=== PATIENT | female | born 1940 | race Caucasian/White ===

== ENCOUNTER 2017-08-29 07:24 | Day surgery (SDC) | payer MEDICARE, BC ==
[~2017-08-29] VITALS: Ht 162.6 cm; Wt 66.7 kg
[~2017-08-29 07:24] MED LIST: ASPI81CH PO; ASPI81EC PO; ATOR40TA PO; CALCAVITD PO; CHOL10002 PO; CLON.5 PO; DULO30 PO; FENT50TP TD; GABA100 PO; HYDACE5 PO; HYDACE7.5 PO; HYDMOR4 PO; Hair, Skin & N1 EACH PO; LISHYD2012 PO; LOSARTAN/HCTZ; LOSHYD PO; LOVA20 PO; Lovastatin20 MG PO; MAGCHL64ER PO; MELA3 PO; MIRT15 PO; MIRT15ST MM; MULVITMIND PO; MULVITMINE PO; MULVITMINF PO; NAPR220 PO; OMEP20ER PO; OMEPRAZOLE MAGN20 MG PO; OXYB5 PO; OXYC5; POLY17UD PO; POTCHL10ER PO; PRED20 PO; PREG100 PO; Super B Comple150 MG PO; VITB100 PO; VITNEPH PO; ZOLP12.5 PO; [UNRECOGNIZED DRUG - OTHER] PO
[2018-05-31] MEDS ORDERED: Prednisone20 MG PO (13:31)
[2018-05-31] MEDS ORDERED: Norco 10-325 T1 EACH PO (13:31)
== END 2017-08-29 09:28 | disposition home or self-care (01) ==
LOC: ORSCSDS 07:24
PROVIDERS: Internal Medicine Gastroenterology
PROC: 0D758ZZ Dilation of Esophagus, Via Natural or Artificial Opening Endoscopic (ICD-10-PCS; principal; 2017-08-29 08:45)
PROC: 0DB68ZX Excision of Stomach, Via Natural or Artificial Opening Endoscopic, Diagnostic (ICD-10-PCS; principal; 2017-08-29 08:45)
PROC: 0DB58ZX Excision of Esophagus, Via Natural or Artificial Opening Endoscopic, Diagnostic (ICD-10-PCS; principal; 2017-08-29 08:45)
DX: K21.9 Gastro-esophageal reflux disease without esophagitis (principal); K22.2 Esophageal obstruction; K29.70 Gastritis, unspecified, without bleeding; R13.10 Dysphagia, unspecified; K44.9 Diaphragmatic hernia without obstruction or gangrene; R05 Cough; K22.8 Other specified diseases of esophagus; I10 Essential (primary) hypertension; Z87.891 Personal history of nicotine dependence; Z79.82 Long term (current) use of aspirin; Z79.899 Other long term (current) drug therapy
CPT/HCPCS: 88305; 88342; C1726; J7120

== ENCOUNTER → 2018-08-07 | Outpatient (CLI) | payer MEDICARE, BC ==
[~2018-08-07] MED LIST changes: +Norco 10-325 T1 EACH PO; +Prednisone20 MG PO
== END | disposition home or self-care (01) ==
LOC: LAB SHORT 10:01 → PLD 10:01
DX: D22.5 Melanocytic nevi of trunk (principal)
CPT/HCPCS: 88305

== ENCOUNTER 2019-02-11 05:59 | Day surgery (SDC) | payer MEDICARE, BC ==
[~2019-02-11] VITALS: Ht 162.6 cm; Wt 63.1 kg
[~2019-02-11 05:59] MED LIST changes: +ALEVE220 MG PO; +HYDR1TAB94 PO; +LANS30EC PO; +LOSARTAN-HCTZ1 EACH PO; +SOLI5 PO
--- NOTE | 2019-02-11 06:50 | NUR ---
History, Chart, Medications and Allergies reviewed before start of procedure. Patient confirms NPO status and agrees with scheduled surgery. Lungs clear T/O to Auscultation. Patient reports completing Chlorhexadine shower X2 prior to admission to hospital. Pre-Op teaching done. Pt verbalizes understanding. PATIENT HAS NO JEWELRY ON AT ADMISSION. PATIENT BROUGHT HER OWN WALKER, PATIENT LABEL PLACED. ALL OTHER BELONGININGS PLACED UNDER GURNEY.
--- NOTE | 2019-02-11 07:01 | NUR ---
PATIENT UP TO BR FOR UNMEASURED VOID.
--- NOTE | 2019-02-11 07:14 | NUR ---
LEAD LOADER REPORT COMPLETED AT BEDSIDE WITH CORONA SILVA RN.
--- NOTE | 2019-02-11 10:00 | NUR ---
NANDO CHAUDHRY REPORTED THAT 230ML OF URINE ON BLADDER SCAN
--- NOTE | 2019-02-11 10:07 | NUR ---
PRIMARY RN (NANDO) TAKING A BREAK. RN WILL ASSUME CARE OF PT. XRAY IS AT BEDSIDE AT THIS TIME.
--- NOTE | 2019-02-11 10:11 | NUR ---
LATE ENTRY- PATIENT COMPLETED NOZIN SWABS TO BILATERAL NARES PRESURGICALLY.
--- NOTE | 2019-02-11 10:27 | NUR ---
PRIMARY RN HAS RETURNED. REPORT GIVEN BACK TO NANDO CHAUDHRY. SHE WILL ASSUME CARE OF PT.
--- NOTE | 2019-02-11 15:52 | NUR ---
SHIFT SUMMARY PT POD 0 R TKA. AQUACEL DRESSING C/D/I. PT HAS FULL SENSATION AND MOTION IN RLE. UP TO BATHROOM AND THERAPY. PAIN WELL CONTROLED WITH 1 ROXICODONE AND SCHEDUALED TYLENOL, TORADOL. CONTINUOUS ICE THERAPY AND SCDS IN PLACE. TOLERATING REGULAR DIET WITH NO N/V, SALINE LOCKED. PLAN IS TO DC HOME TOMORROW IF PT MEETS REQUIREMENTS.
[2019-02-12 05:20] LABS: BASOPHILS ABSOLUTE AUTO 0.02 K/mm3 (0.00-0.23); BASOPHILS PERCENT AUTO 0 % (0-2); EOSINOPHILS ABSOLUTE AUTO 0.04 K/mm3 (0.00-0.68); EOSINOPHILS PERCENT AUTO 0 % (0-6); Hematocrit 38.4 % (33.0-51.0); Hemoglobin 12.5 g/dL (11.5-16.0); IMMATURE GRAN ABSOLUTE AUTO 0.04 K/mm3 (0.00-0.10); IMMATURE GRAN PERCENT AUTO 0 % (0-1); LYMPHOCYTES ABSOLUTE AUTO 1.11 K/mm3 (0.84-5.20); LYMPHOCYTES PERCENT AUTO 8 % (21-46); MONOCYTES ABSOLUTE AUTO 0.93 K/mm3 (0.16-1.47); MONOCYTES PERCENT AUTO 7 % (4-13); Mean Corpuscular HGB 29.6 pg (26.0-34.0); Mean Corpuscular HGB Conc 32.6 g/dL (31.5-36.5); Mean Corpuscular Volume 91 fL (80-100); Mean Platelet Volume 9.7 fL (9.1-12.4); NEUTROPHILS ABSOLUTE AUTO 12.12 K/mm3 (1.96-9.15); NEUTROPHILS PERCENT AUTO 85 % (41-73); Platelet Count 318 K/mm3 (150-400); RDW Standard Deviation 42.8 fL (35.1-46.3); Red Blood Cell Count 4.23 M/mm3 (3.80-5.20); White Blood Cell Count 14.26 K/mm3 (4.00-11.30)
--- NOTE | 2019-02-12 05:21 | NUR ---
SUMMARY POD #1 RIGHT TKA DRESSING REMAINS C/D/I, POLAR PACK & SCD'S IN PLACE. PT IS A 1 ASSIST TO THE BATHROOM USING FWW/GAIT BELT. PAIN MANAGED WITH PO OXYCODONE,TYLENOL, & TORADOL. VOIDING WNL. CALL LIGHT IN REACH
[2019-02-12 05:43] LABS: Anion Gap 4 mmol/L (6-16); Blood Urea Nitrogen 15 mg/dL (8-24); CO2, Blood 31 mmol/L (21-32); Calcium, Blood 8.5 mg/dL (8.5-10.1); Chloride, Blood 99 mmol/L (98-108); Creatinine, Blood 0.65 mg/dL (0.40-1.00); Glomerular Filtration Rate >60 (60-); Glucose, Blood 104 mg/dL (70-99); Potassium, Blood 4.1 mmol/L (3.5-5.5); Sodium, Blood 134 mmol/L (136-145)
[2019-02-12 05:44] LABS: Magnesium, Blood 1.8 mg/dL (1.6-2.4)
[2019-02-12] MEDS ORDERED: ASPI325 PO (11:52)
[2019-02-12] MEDS ORDERED: OXYC5 PO (11:53)
--- NOTE | 2019-02-12 12:37 | NUR ---
DISCHARGE PT CLEARED THERAPY, PAIN WELL MANAGED, TOLERATING DIET, VOIDING WELL, SCRIPT AND DRSGS SENT. ESCORTED VIA W/C OUT TO PRIVATE CAR.
--- NOTE | 2019-02-13 13:22 | NUR ---
02/13/19 1322 Melody Conrad CHART VERIFICATIONS, AUDITS.
== END 2019-02-12 12:27 | disposition home or self-care (01) ==
LOC: ORSCMMR 05:59 → ORD 07:30 → ORSCMMR 07:30 → SURS 11:14 → ORSCMMR 02-12 12:27 → SURS 02-12 12:27
PROVIDERS: Orthopaedic Surgery
PROC: 0SRC069 Replacement of Right Knee Joint with Oxidized Zirconium on Polyethylene Synthetic Substitute, Cemented, Open Approach (ICD-10-PCS; principal; 2019-02-11 07:30)
DX: M17.11 Unilateral primary osteoarthritis, right knee (principal); I10 Essential (primary) hypertension; E78.00 Pure hypercholesterolemia, unspecified; Z79.82 Long term (current) use of aspirin; Z79.899 Other long term (current) drug therapy; Z87.891 Personal history of nicotine dependence
CPT/HCPCS: 36415; 73560-RT; 80048; 83735; 85025; 88300; 97110; 97116; 97162; 97530; C1776; J0171; J0690; J0735; J1100; J1885; J2250; J2270; J2405; J2704; J2795; J3010; J7120

== ENCOUNTER 2019-05-20 20:30 | Emergency (ER) | payer MEDICARE, BC ==
[~2019-05-20] VITALS: Ht 162.6 cm; Wt 62.6 kg
[~2019-05-20 20:30] MED LIST changes: +ASPI325 PO; +OXYC5 PO
== END 2019-05-20 22:23 | disposition home or self-care (01) ==
LOC: ER 20:30
DX: G45.9 Transient cerebral ischemic attack, unspecified (principal); I10 Essential (primary) hypertension; Z86.73 Personal history of transient ischemic attack (TIA), and cerebral infarction without residual deficits; Z87.891 Personal history of nicotine dependence
CPT/HCPCS: 99283

== ENCOUNTER 2019-07-15 13:05 | Emergency (ER) | payer MEDICARE, BC ==
[~2019-07-15] VITALS: Ht 162.6 cm; Wt 62.6 kg
== END 2019-07-15 14:26 | disposition home or self-care (01) ==
LOC: ER 13:05
DX: S52.502A Unspecified fracture of the lower end of left radius, initial encounter for closed fracture (principal); I10 Essential (primary) hypertension; Z86.73 Personal history of transient ischemic attack (TIA), and cerebral infarction without residual deficits; Z87.891 Personal history of nicotine dependence; Z88.0 Allergy status to penicillin; Z88.8 Allergy status to other drugs, medicaments and biological substances; Z79.82 Long term (current) use of aspirin; Z79.899 Other long term (current) drug therapy; W19.XXXA Unspecified fall, initial encounter
CPT/HCPCS: 29125; 73110; 99283-25

== ENCOUNTER 2020-04-08 01:46 | Emergency (ER) | payer MEDICARE, BC ==
[~2020-04-08] VITALS: Ht 167.6 cm; Wt 63.5 kg
[~2020-04-08 01:46] MED LIST changes: +MAGNESIUM CHLOR64 MG PO
[2020-04-08 02:04] LABS: BASOPHILS ABSOLUTE AUTO 0.08 K/mm3 (0.00-0.23); BASOPHILS PERCENT AUTO 1 % (0-2); EOSINOPHILS ABSOLUTE AUTO 0.15 K/mm3 (0.00-0.68); EOSINOPHILS PERCENT AUTO 1 % (0-6); Hematocrit 44.7 % (33.0-51.0); Hemoglobin 14.9 g/dL (11.5-16.0); IMMATURE GRAN PERCENT AUTO 1 % (0-1); LYMPHOCYTES ABSOLUTE AUTO 2.31 K/mm3 (0.84-5.20); LYMPHOCYTES PERCENT AUTO 16 % (21-46); MONOCYTES ABSOLUTE AUTO 0.93 K/mm3 (0.16-1.47); MONOCYTES PERCENT AUTO 6 % (4-13); Mean Corpuscular HGB 29.7 pg (26.0-34.0); Mean Corpuscular HGB Conc 33.3 g/dL (31.5-36.5); Mean Corpuscular Volume 89 fL (80-100); Mean Platelet Volume 8.7 fL (9.1-12.4); NEUTROPHILS ABSOLUTE AUTO 11.18 K/mm3 (1.96-9.15); NEUTROPHILS PERCENT AUTO 75 % (41-73); Platelet Count 479 K/mm3 (150-400); RDW Coefficient Variation 13.2 % (11.7-14.2); RDW Standard Deviation 43.6 fL (35.1-46.3); Red Blood Cell Count 5.01 M/mm3 (3.80-5.20); White Blood Cell Count 14.85 K/mm3 (4.00-11.30)
[2020-04-08 02:24] LABS: Source, Urine Clean Catch
[2020-04-08 02:25] LABS: Alanine Aminotransfer (ALT/SGP 31 U/L (12-78); Albumin, Blood 4.1 g/dL (3.4-5.0); Albumin/Globulin Ratio 1.3 (0.8-1.8); Alk Phos 81 U/L (50-136); Anion Gap 7 mmol/L (6-16); Aspartate Aminotrans (AST/SGOT 16 U/L (12-37); Bilirubin, Total 0.5 mg/dL (0.1-1.0); Blood Urea Nitrogen 17 mg/dL (8-24); Bun/Creatinine Ratio 24.7 (12.0-20.0); CO2, Blood 27 mmol/L (21-32); Calcium, Blood 9.1 mg/dL (8.5-10.1); Chloride, Blood 96 mmol/L (98-108); Creatinine, Blood 0.69 mg/dL (0.40-1.00); Ethanol (Alcohol), Blood, Med <3 mg/dL; Globulin, Blood 3.1 g/dL (2.2-4.0); Glomerular Filtration Rate >60 (60-); Glucose, Blood 133 mg/dL (70-99); Magnesium, Blood 1.7 mg/dL (1.6-2.4); Potassium, Blood 3.9 mmol/L (3.5-5.5); Sodium, Blood 130 mmol/L (136-145); Total Protein, Blood 7.2 g/dL (6.4-8.2); Troponin I <0.015 ng/mL (0.000-0.040)
[2020-04-08] MEDS ORDERED: FERROUS GLUCON324 M2 PO (02:29)
[2020-04-08] MEDS ORDERED: Norco 5-325 Ta1 EACH PO (02:30)
[2020-04-08 02:41] LABS: Bilirubin, Urine Neg (Neg); Blood, Urine 1+ (Neg); Glucose Qualitative, Urine Neg (Neg); Ketones, Urine 2+ (Neg); Leukocyte Esterase, Urine 1+ (Neg); Nitrite, Urine Neg (Neg); Protein, Urine Neg (Neg); Urobilinogen, Urine NORM (Normal)
[2020-04-08 02:43] LABS: Appearance, Urine Clear (Clear); Color, Urine Yellow (P-Yellow)
[2020-04-08 02:47] LABS: International Normalized Ratio 0.99; Prothrombin Time Results 10.6 Sec (9.7-11.5)
[2020-04-08 02:47] LABS: Bacteria Few /hpf; Red Blood Cells, Urine 0-2 /hpf (0-2); White Blood Cells, Urine 0-2 /hpf (0-5)
[2020-04-08 02:48] LABS: Hyaline Casts 0-2 /lpf (0-2); Squamous Epithelial Cells Few /hpf (Few)
[2020-04-08 02:51] LABS: U Amphetamine Screen Not Detected; U Barbituate Screen Not Detected; U Benzodiazapine Screen Not Detected; U Buprenorphine Screen Not Detected; U Cannabinoids Screen Not Detected; U Cocaine Screen Not Detected; U Methadone Screen Not Detected; U Methamphetamine Screen Not Detected; U Opiates Screen Not Detected; U Oxycodone Screen Not Detected; U Phencyclidine Screen Not Detected; U Propoxyphene Screen Not Detected
== END 2020-04-08 04:32 | disposition home or self-care (01) ==
LOC: ER 01:46
PROVIDERS: Emergency Medicine
DX: G45.9 Transient cerebral ischemic attack, unspecified (principal); F41.9 Anxiety disorder, unspecified; I10 Essential (primary) hypertension; Z88.0 Allergy status to penicillin; Z88.8 Allergy status to other drugs, medicaments and biological substances; Z79.82 Long term (current) use of aspirin; Z87.891 Personal history of nicotine dependence; Z79.899 Other long term (current) drug therapy
CPT/HCPCS: 70450; 71046; 80053; 81001; 82947; 83735; 84145; 84484; 85025; 85610; 87086; 93005; 93010; 99285-25; G0480

== ENCOUNTER 2020-09-22 09:10 | Day surgery (SDC) | payer MEDICARE, BC ==
[~2020-09-22] VITALS: Ht 162.6 cm; Wt 59.6 kg
[~2020-09-22 09:10] MED LIST changes: +ACET500 PO; +FERROUS GLUCON324 M2 PO; +IMPOYZ60 GM TOP; +LOSA50 PO; +Norco 5-325 Ta1 EACH PO; +Norvasc2.5 MG PO; +TOLT2ER PO; +TYLENOL ARTHRITIS PO; +Vitamin B Comple1 EA PO
--- NOTE | 2020-09-22 10:34 | NUR ---
Ambulatory in Day Surgery. Surgical site prepped with 2% Chlorhexidine cloth wipe. Kosta Paws warming gown applied. History, Chart, Medications and Allergies reviewed before start of procedure.Lungs clear T/O to Auscultation. Patient confirms NPO status and agrees with scheduled surgery. Pre-Op teaching done. Pt verbalizes understanding. Pre-Op teaching done. Pt verbalizes understanding. Patient reports completing Chlorhexadine shower X2 prior to admission to hospital.
--- NOTE | 2020-09-22 19:28 | NUR ---
SHIFT SUMMARY PT HAS DONE WELL TODAY. WORKED W/ THERAPY & UP TO CHAIR FOR DINNER. PAIN WELL CONTROLLED. EATING, DRINKING, & VOIDING WELL.
--- NOTE | 2020-09-22 20:52 | NUR ---
STATED..."I WILL WALK LATER WHEN I GET UP TO RESTROOM."
--- NOTE | 2020-09-23 03:37 | NUR ---
SHIFT SUMMARY: POD 1 LEFT TOTAL HIP REPLACEMENT PATIENT IS ALERT AND ORIENTED X4 WHILE AWAKE. SHE HAS BEEN ASLEEP MAJORITY OF THE SHIFT BUT IS EASILY AROUSABLE. PAIN IS MANAGED WITH 1 OXY, TORADOL, AND TYLENOL. HER AQUACEL IS C/D/I. 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 SHE HAS FULL SENSATIONS IN ALL EXTREMETIES AND CAN MOVE THEM. SHE AMBULATES WITH FWW AND GAIT BELT AND IS A SBA. CALLS APPROPRIATELY. SHE IS VOIDING AND TOLERATING PO INTAKE. CALL LIGHT WITHIN REACH. THE PLAN IS FOR THIS PATIENT TO WORK WITH PT LATER TODAY AND POSSIBLY DISCHARGE HOME.
[2020-09-23 05:20] LABS: BASOPHILS ABSOLUTE AUTO 0.03 K/mm3 (0.00-0.23); BASOPHILS PERCENT AUTO 0 % (0-2); EOSINOPHILS PERCENT AUTO 0 % (0-6); Hematocrit 35.6 % (33.0-51.0); Hemoglobin 11.6 g/dL (11.5-16.0); IMMATURE GRAN ABSOLUTE AUTO 0.06 K/mm3 (0.00-0.10); IMMATURE GRAN PERCENT AUTO 0 % (0-1); LYMPHOCYTES ABSOLUTE AUTO 0.66 K/mm3 (0.84-5.20); LYMPHOCYTES PERCENT AUTO 4 % (21-46); MONOCYTES ABSOLUTE AUTO 0.97 K/mm3 (0.16-1.47); MONOCYTES PERCENT AUTO 6 % (4-13); Mean Corpuscular HGB 29.9 pg (26.0-34.0); Mean Corpuscular HGB Conc 32.6 g/dL (31.5-36.5); Mean Corpuscular Volume 92 fL (80-100); Mean Platelet Volume 10.3 fL (9.1-12.4); NEUTROPHILS ABSOLUTE AUTO 14.01 K/mm3 (1.96-9.15); NEUTROPHILS PERCENT AUTO 89 % (41-73); Platelet Count 362 K/mm3 (150-400); RDW Coefficient Variation 13.3 % (11.7-14.2); RDW Standard Deviation 44.9 fL (35.1-46.3); Red Blood Cell Count 3.88 M/mm3 (3.80-5.20); White Blood Cell Count 15.73 K/mm3 (4.00-11.30)
[2020-09-23 05:45] LABS: Anion Gap 5 mmol/L (6-16); Blood Urea Nitrogen 17 mg/dL (8-24); Bun/Creatinine Ratio 27.1 (12.0-20.0); CO2, Blood 29 mmol/L (21-32); Calcium, Blood 8.9 mg/dL (8.5-10.1); Chloride, Blood 103 mmol/L (98-108); Creatinine, Blood 0.63 mg/dL (0.40-1.00); Glomerular Filtration Rate >60 (60-); Glucose, Blood 118 mg/dL (70-99); Sodium, Blood 137 mmol/L (136-145)
--- NOTE | 2020-09-23 07:24 | NUR ---
pt amb in [place] with pt with fww earlier was in recliner stated her knee was swollen had her ice pack in place talked about importance of wearing it
[2020-09-23] MEDS ORDERED: Percocet 5-3251 EACH PO (08:13)
--- NOTE | 2020-09-23 08:15 | NUR ---
d [place] by to see pt
--- NOTE | 2020-09-23 09:17 | NUR ---
discharge instructions reviewed with pt verblized rx given pt getting dressed ride called
--- NOTE | 2020-09-23 10:08 | NUR ---
wc escort to car no acute changes
--- NOTE | 2020-09-24 10:56 | NUR ---
09/24/20 1056 Cordelia Murphy VERIFICATIONS: EDIT CHART.
== END 2020-09-23 10:07 | disposition home or self-care (01) ==
LOC: ORSCMMR 09:10 → ORD 11:00 → SURS 14:02 → ORSCMMR 09-23 10:07
PROVIDERS: Orthopaedic Surgery
PROC: 0SRB0JZ Replacement of Left Hip Joint with Synthetic Substitute, Open Approach (ICD-10-PCS; principal; 2020-09-22 11:00)
DX: M16.12 Unilateral primary osteoarthritis, left hip (principal); I10 Essential (primary) hypertension; Z86.73 Personal history of transient ischemic attack (TIA), and cerebral infarction without residual deficits; E78.00 Pure hypercholesterolemia, unspecified; Z79.899 Other long term (current) drug therapy; Z79.82 Long term (current) use of aspirin
CPT/HCPCS: 36415; 72170; 80048; 85025; 97110; 97110-CQ; 97116; 97116-CQ; 97162; 97530; 97530-CQ; A9270; C1776; J0171; J0690; J0735; J1170; J1885; J2250; J2405; J2704; J2795; J3010; J7120

== ENCOUNTER 2024-03-22 00:26 | Observation (INO) | payer MEDICARE, BC ==
[~2024-03-22] VITALS: Ht 160 cm; Wt 58.8 kg
[~2024-03-22 00:26] MED LIST changes: +Aspir 8181 MG PO; +CIPR500 PO; +DULO60 PO; +METR500 PO; +ONDA4ODT MM; +Percocet 5-3251 EACH PO; +TRAM50 PO; +VISBIOME 112.51 EACH PO
[2024-03-22 01:13] LABS: BASOPHILS ABSOLUTE AUTO 0.11 K/mm3 (0.00-0.23); BASOPHILS PERCENT AUTO 1 % (0-2); EOSINOPHILS ABSOLUTE AUTO 0.54 K/mm3 (0.00-0.68); EOSINOPHILS PERCENT AUTO 4 % (0-6); Hematocrit 39.2 % (33.0-51.0); Hemoglobin 12.9 g/dL (11.5-16.0); IMMATURE GRAN ABSOLUTE AUTO 0.04 K/mm3 (0.00-0.10); IMMATURE GRAN PERCENT AUTO 0 % (0-1); LYMPHOCYTES ABSOLUTE AUTO 2.61 K/mm3 (0.84-5.20); LYMPHOCYTES PERCENT AUTO 21 % (21-46); MONOCYTES ABSOLUTE AUTO 0.77 K/mm3 (0.16-1.47); MONOCYTES PERCENT AUTO 6 % (4-13); Mean Corpuscular HGB 28.5 pg (26.0-34.0); Mean Corpuscular HGB Conc 32.9 g/dL (31.5-36.5); Mean Corpuscular Volume 87 fL (80-100); Mean Platelet Volume 9.2 fL (9.1-12.4); NEUTROPHILS ABSOLUTE AUTO 8.14 K/mm3 (1.96-9.15); NEUTROPHILS PERCENT AUTO 67 % (41-73); Platelet Count 430 K/mm3 (150-400); RDW Coefficient Variation 13.3 % (11.7-14.2); RDW Standard Deviation 41.9 fL (35.1-46.3); Red Blood Cell Count 4.53 M/mm3 (3.80-5.20); White Blood Cell Count 12.21 K/mm3 (4.00-11.30)
[2024-03-22 01:23] LABS: Source, Urine Clean Catch
[2024-03-22 01:24] LABS: Bilirubin, Urine Neg (Neg); Blood, Urine Neg (Neg); Glucose Qualitative, Urine Neg (Neg); Ketones, Urine Neg (Neg); Leukocyte Esterase, Urine Neg (Neg); Nitrite, Urine Neg (Neg); Protein, Urine Neg (Neg); Urobilinogen, Urine NORM (Normal)
[2024-03-22 01:30] LABS: Albumin, Blood 3.8 g/dL (3.4-5.0); Albumin/Globulin Ratio 1.2 (0.8-1.8); Bilirubin, Total 0.5 mg/dL (0.1-1.0); Bun/Creatinine Ratio 17.4 (12.0-20.0); Calcium, Blood 9.8 mg/dL (8.5-10.1); Creatinine, Blood 0.81 mg/dL (0.40-1.00); Globulin, Blood 3.3 g/dL (2.2-4.0); Total Protein, Blood 7.1 g/dL (6.4-8.2)
[2024-03-22 01:34] LABS: Appearance, Urine Clear (Clear); Color, Urine Yellow (P-Yellow)
[2024-03-22] MEDS ORDERED: NS 1,000 ML BAG IR ONE (06:45)
[2024-03-22] MEDS ORDERED: NS 500 ML IV ONE (07:05)
[2024-03-22] MEDS ORDERED: Ondansetron HCl 2 MG / ML 2ML Vial IV PRN (09:45)
[2024-03-22] MEDS ORDERED: HydrALAZINE HCl 20 MG / ML 1ML Vial IV PRN (09:45)
[2024-03-22] MEDS ORDERED: FLU VACC TS2024-25(6MOS UP)/PF 45 MCG/0.5 ML SYRINGE IM SCH (09:45)
[2024-03-22] MEDS ORDERED: Acetaminophen 325 MG TABLET PO PRN (09:50)
[2024-03-22 12:10] LABS: CHOL/HDL RATIO 1.8; Cholesterol 161 mg/dL (50-200); HDL Cholesterol 91 mg/dL (>39); LDL/HDL RATIO 0.6; Low Density Lipoprotein Chol 59 mg/dL (0-110); Triglycerides 57 mg/dL (30-160); Very Low Density Lipoprot Chol 11 mg/dL (6-32)
[2024-03-22] MEDS ORDERED: Aspirin 325 MG Tab PO ONE (12:30)
--- NOTE | 2024-03-22 15:19 | NUR ---
RN TO RN REPORT RECIEVED FROM RICHA BLEVINS IN ER AT 1660.PATIENT CURRENTLY HAVING CAROTID ULTRASOUND AND THEN WILL BE BROUGHT UP TO FLOOR.
[2024-03-22 15:50] VITALS: BP 167/77
[2024-03-22] MEDS ORDERED: ClonazePAM 0.5 MG Tab PO PRN (15:55)
[2024-03-22 16:06] LABS: Anti-Xa UFH, PHA Monitoring <0.10 IU/mL; International Normalized Ratio 1.02; Prothrombin Time Results 10.9 Sec (9.7-11.5)
[2024-03-22] MEDS ORDERED: Dose Adjust by Pharmacy XX STA (16:16)
[2024-03-22] MEDS ORDERED: Heparin Sodium 5000 Units/ML 1ML MDV IV ONE (16:20)
[2024-03-22] MEDS ORDERED: Heparin Sodium,Porcine/0.5 NS 500 ML IV SCH (16:20)
[2024-03-22] MEDS ORDERED: Trospium Chloride 20 MG Tab PO SCH (16:30)
--- NOTE | 2024-03-22 16:47 | NUR ---
PT ARRIVED FROM THE ER, PT ALERT AND ORIENTED, ABLE TO STAND AND TRANSFER TO THE BED FROM THE [facility] WITH MIN ASSIST, PT DENIES PAIN OR SOB, ORIENTED PT TO THE ROOM AND CALL SYSTEM
[2024-03-22] MEDS ORDERED: Pregabalin 50 MG Capsule PO SCH (18:00)
[2024-03-22 20:16] VITALS: BP 153/73
[2024-03-22] MEDS ORDERED: DEXTROMETHORPHAN/BENZOCAINE 1 EACH LOZENGE MT PRN (21:35)
[2024-03-23 01:06] LABS: BASOPHILS ABSOLUTE AUTO 0.09 K/mm3 (0.00-0.23); BASOPHILS PERCENT AUTO 1 % (0-2); EOSINOPHILS ABSOLUTE AUTO 0.32 K/mm3 (0.00-0.68); EOSINOPHILS PERCENT AUTO 4 % (0-6); Hematocrit 37.7 % (33.0-51.0); Hemoglobin 12.4 g/dL (11.5-16.0); IMMATURE GRAN ABSOLUTE AUTO 0.05 K/mm3 (0.00-0.10); IMMATURE GRAN PERCENT AUTO 1 % (0-1); LYMPHOCYTES ABSOLUTE AUTO 2.56 K/mm3 (0.84-5.20); LYMPHOCYTES PERCENT AUTO 28 % (21-46); MONOCYTES ABSOLUTE AUTO 0.78 K/mm3 (0.16-1.47); MONOCYTES PERCENT AUTO 9 % (4-13); Mean Corpuscular HGB 28.4 pg (26.0-34.0); Mean Corpuscular HGB Conc 32.9 g/dL (31.5-36.5); Mean Corpuscular Volume 87 fL (80-100); NEUTROPHILS ABSOLUTE AUTO 5.33 K/mm3 (1.96-9.15); NEUTROPHILS PERCENT AUTO 59 % (41-73); Platelet Count 441 K/mm3 (150-400); RDW Coefficient Variation 13.7 % (11.7-14.2); RDW Standard Deviation 42.9 fL (35.1-46.3); Red Blood Cell Count 4.36 M/mm3 (3.80-5.20); White Blood Cell Count 9.13 K/mm3 (4.00-11.30)
[2024-03-23] MEDS ORDERED: Clarify Drug Order XX ONE (01:35)
[2024-03-23 01:36] LABS: Bun/Creatinine Ratio 14.3 (12.0-20.0); Calcium, Blood 8.8 mg/dL (8.5-10.1); Creatinine, Blood 0.84 mg/dL (0.40-1.00); Potassium, Blood 3.6 mmol/L (3.5-5.5)
[2024-03-23 03:33] VITALS: BP 146/68
[2024-03-23] MEDS ORDERED: Lansoprazole 15 MG TAB.RAP.DR PO SCH (06:00)
--- NOTE | 2024-03-23 06:11 | NUR ---
SHIFT SUMMARY NOC PT A/O X 4. PLEASANT AND COOPERATIVE WITH CARE. BP STABLE. ON TELE SINUS RHYTHM IN 80'S. ECHO SCHEDULED FOR TODAY. PT HAS C/O OF URINE FREQUENCY, URINE IS MILDLY HAZY IN COLOR. PT ALSO REPORTS SOME DISCOMFORT IN BLADDER REGION. PT HAS HACKING PRODUCTIVE COUGH WITH THICK WHITE SPUTUM, PT REPORTS THIS HAS BEEN ONGOING FOR A FEW DAYS. CEPACOL LOZENGES ORDERED FOR SORE THROAT AND COUGH. PT ON HEPARIN INFUSION FOR POSSIBLE CVA, ONLY DEFICIT NOTED WAS MILD LLE WEAKNESS. PT CURRENTLY RESTING WITH BED IN LOWEST POSITION, AND CALL LIGHT WITHIN REACH.
[2024-03-23 07:23] VITALS: BP 138/72
[2024-03-23] MEDS ORDERED: Aspirin 81 MG TabEC PO SCH (09:00)
[2024-03-23] MEDS ORDERED: AmLODIPine Besylate 5 MG Tab PO SCH (09:00)
[2024-03-23] MEDS ORDERED: Atorvastatin 10 MG Tab PO SCH (09:00)
[2024-03-23] MEDS ORDERED: Enoxaparin 40 MG/0.4 ML SYR SC SCH (09:00)
[2024-03-23] MEDS ORDERED: Losartan Potassium 50 MG Tab PO SCH (09:00)
[2024-03-23 16:34] VITALS: BP 149/73
--- NOTE | 2024-03-23 17:11 | NUR ---
SHIFT SUMMARY; PATIENT TO DISCHARGE TO HOME TONIGHT PER , ECHO IS READ LATE THIS AFTERNOON. PATIENT WILL CALL FOR RIDE AFTER ORDERS RECEIVED AND SET TIME FOR DC IS GIVEN.
== END 2024-03-23 18:34 | disposition home or self-care (01) ==
LOC: ER 00:26 → MEDS 00:27 → ERHOLD 00:27 → MEDS 15:40
PROVIDERS: Emergency Medicine; ADMIT Family Medicine
DX: I16.0 Hypertensive urgency (principal); I10 Essential (primary) hypertension; I21.A1 Myocardial infarction type 2; K21.9 Gastro-esophageal reflux disease without esophagitis; R53.1 Weakness; M81.0 Age-related osteoporosis without current pathological fracture; E78.5 Hyperlipidemia, unspecified; Z87.891 Personal history of nicotine dependence; Z79.82 Long term (current) use of aspirin; Z79.891 Long term (current) use of opiate analgesic; Z79.899 Other long term (current) drug therapy; Z88.0 Allergy status to penicillin; Z88.8 Allergy status to other drugs, medicaments and biological substances
CPT/HCPCS: 36415; 70450; 70551; 80048; 80053; 80061; 81003; 84484; 85025; 85520; 85610; 93005; 93010; 93306; 93880; 96361; 96374; 96374-59; 99284-25; A9270; G0378; J1644; J2405; J7030

== ENCOUNTER 2024-03-25 19:41 | Observation (INO) | payer MEDICARE, BC ==
[~2024-03-25] VITALS: Ht 162.6 cm; Wt 59.9 kg
[2024-03-25 21:29] LABS: BASOPHILS ABSOLUTE AUTO 0.03 K/mm3 (0.00-0.23); BASOPHILS PERCENT AUTO 0 % (0-2); EOSINOPHILS PERCENT AUTO 0 % (0-6); Hematocrit 37.4 % (33.0-51.0); Hemoglobin 12.6 g/dL (11.5-16.0); IMMATURE GRAN ABSOLUTE AUTO 0.09 K/mm3 (0.00-0.10); IMMATURE GRAN PERCENT AUTO 1 % (0-1); LYMPHOCYTES ABSOLUTE AUTO 1.63 K/mm3 (0.84-5.20); LYMPHOCYTES PERCENT AUTO 9 % (21-46); MONOCYTES PERCENT AUTO 8 % (4-13); Mean Corpuscular HGB 28.6 pg (26.0-34.0); Mean Corpuscular HGB Conc 33.7 g/dL (31.5-36.5); Mean Corpuscular Volume 85 fL (80-100); Mean Platelet Volume 10.4 fL (9.1-12.4); NEUTROPHILS ABSOLUTE AUTO 14.62 K/mm3 (1.96-9.15); NEUTROPHILS PERCENT AUTO 82 % (41-73); Platelet Count 500 K/mm3 (150-400); RDW Coefficient Variation 13.4 % (11.7-14.2); RDW Standard Deviation 41.7 fL (35.1-46.3); Red Blood Cell Count 4.41 M/mm3 (3.80-5.20); White Blood Cell Count 17.87 K/mm3 (4.00-11.30)
[2024-03-25] MEDS ORDERED: Aspirin 325 MG Tab PO ONE (21:35)
[2024-03-25 21:42] LABS: Albumin, Blood 3.9 g/dL (3.4-5.0); Albumin/Globulin Ratio 1.1 (0.8-1.8); Bilirubin, Total 0.5 mg/dL (0.1-1.0); Bun/Creatinine Ratio 22.3 (12.0-20.0); Calcium, Blood 9.9 mg/dL (8.5-10.1); Creatinine, Blood 0.85 mg/dL (0.40-1.00); Globulin, Blood 3.4 g/dL (2.2-4.0); Potassium, Blood 4.1 mmol/L (3.5-5.5); Total Protein, Blood 7.3 g/dL (6.4-8.2)
[2024-03-25] MEDS ORDERED: Atorvastatin 40 MG Tab PO SCH (23:00)
[2024-03-25] MEDS ORDERED: Ondansetron HCl 2 MG / ML 2ML Vial IV PRN (23:00)
[2024-03-25] MEDS ORDERED: NS 1,000 ML IV SCH (23:00)
[2024-03-25] MEDS ORDERED: FLU VACC TS2024-25(6MOS UP)/PF 45 MCG/0.5 ML SYRINGE IM SCH (23:00)
[2024-03-25] MEDS ORDERED: Clopidogrel Bisulfate 75 MG Tab PO SCH (23:00)
[2024-03-25] MEDS ORDERED: Enoxaparin 40 MG/0.4 ML SYR SC SCH (23:00)
[2024-03-26] MEDS ORDERED: NS 1,000 ML IV ONE (01:02)
[2024-03-26 06:19] LABS: BASOPHILS ABSOLUTE AUTO 0.05 K/mm3 (0.00-0.23); BASOPHILS PERCENT AUTO 0 % (0-2); EOSINOPHILS ABSOLUTE AUTO 0.06 K/mm3 (0.00-0.68); EOSINOPHILS PERCENT AUTO 1 % (0-6); Hematocrit 31.8 % (33.0-51.0); Hemoglobin 10.8 g/dL (11.5-16.0); IMMATURE GRAN ABSOLUTE AUTO 0.02 K/mm3 (0.00-0.10); IMMATURE GRAN PERCENT AUTO 0 % (0-1); LYMPHOCYTES ABSOLUTE AUTO 2.23 K/mm3 (0.84-5.20); LYMPHOCYTES PERCENT AUTO 19 % (21-46); MONOCYTES ABSOLUTE AUTO 1.16 K/mm3 (0.16-1.47); MONOCYTES PERCENT AUTO 10 % (4-13); Mean Corpuscular HGB 29.3 pg (26.0-34.0); Mean Corpuscular Volume 86 fL (80-100); Mean Platelet Volume 9.8 fL (9.1-12.4); NEUTROPHILS ABSOLUTE AUTO 8.22 K/mm3 (1.96-9.15); NEUTROPHILS PERCENT AUTO 70 % (41-73); Platelet Count 405 K/mm3 (150-400); RDW Coefficient Variation 13.7 % (11.7-14.2); RDW Standard Deviation 42.8 fL (35.1-46.3); Red Blood Cell Count 3.69 M/mm3 (3.80-5.20); White Blood Cell Count 11.74 K/mm3 (4.00-11.30)
[2024-03-26 06:44] LABS: Albumin/Globulin Ratio 1.1 (0.8-1.8); Bilirubin, Total 0.5 mg/dL (0.1-1.0); Bun/Creatinine Ratio 16.2 (12.0-20.0); Calcium, Blood 8.4 mg/dL (8.5-10.1); Creatinine, Blood 0.8 mg/dL (0.40-1.00); Globulin, Blood 2.7 g/dL (2.2-4.0); Potassium, Blood 4.3 mmol/L (3.5-5.5); Total Protein, Blood 5.7 g/dL (6.4-8.2)
[2024-03-26 08:08] LABS: Source, Urine Clean Catch
[2024-03-26 08:29] LABS: Appearance, Urine Clear (Clear); Bilirubin, Urine Neg (Neg); Blood, Urine Neg (Neg); Color, Urine Yellow (P-Yellow); Glucose Qualitative, Urine Neg (Neg); Ketones, Urine Neg (Neg); Leukocyte Esterase, Urine Neg (Neg); Nitrite, Urine Neg (Neg); Protein, Urine Neg (Neg); Urobilinogen, Urine NORM (Normal); pH, Urine 6.5 (5.0-8.0)
[2024-03-26] MEDS ORDERED: Aspirin 81 MG Chew PO SCH (09:00)
[2024-03-26 14:08] VITALS: BP 127/46
[2024-03-26 14:11] VITALS: BP 108/62
--- NOTE | 2024-03-26 14:21 | NUR ---
NOTE PT ARRIVED ON UNIT AT 1404. PT IS ALERT. PT ON ROOM AIR. PT HAS PERWICK IN PLACE DUE TO URGENCY, PT REQUESTS IT TO STAY IN PLACE. PT ARRIVED BY BED, AND TRANSFERED SELF TO BED IN ROOM. VSS. PT ORIENTED TO ROOM. CALL LIGHT IN REACH.
[2024-03-26] MEDS ORDERED: CALCIUM 600-D31 EAC2 PO ×2 (14:28)
[2024-03-26] MEDS ORDERED: NS 1,000 ML IV SCH (15:15)
[2024-03-26] MEDS ORDERED: TraMADol HCl 50 MG Tab PO PRN (15:15)
[2024-03-26 15:46] VITALS: BP 114/62
[2024-03-26] MEDS ORDERED: Trospium Chloride 20 MG Tab PO SCH (16:30)
[2024-03-26] MEDS ORDERED: Pregabalin 50 MG Capsule PO SCH (18:00)
--- NOTE | 2024-03-26 18:25 | NUR ---
SHIFT SUMMARY PT A&OX4. PT ADMITTED DUE TO STROKE. PT REPORTS SOME L LOWER EXTREMITY WEAKNESS. FALL PRECAUTIONS IN PLACE. PT ABLE TO AMBULATE TO BSC AND ABLE TO VOID. PT REPORTS URGENCY WHEN VOIDING URGE COMES. PT ON TELE. PT EATING ADEQUATELY. VSS. PT REPORTS NO PAIN. PT ON ROOM AIR. NORMAL SALINE RUNNING AT 100ML/HR. PT HAS BRUISING ON R LOWER LEG DUE TO FALL. PT ALSO REPORTS SOME L SIDE HEAD TENDERNESS FROM FALL. PT IS LAYING IN BED, PT PLEASANT AND COOROPERATIVE. CALL LIGHT IN REACH.
[2024-03-26 19:46] VITALS: BP 127/60
[2024-03-26] MEDS ORDERED: Calcium/Vit D 600 mg-400 Unit Tab PO SCH (21:00)
[2024-03-26] MEDS ORDERED: DEXTROMETHORPHAN/BENZOCAINE 1 EACH LOZENGE MT PRN (22:40)
[2024-03-27 02:48] VITALS: BP 142/66
--- NOTE | 2024-03-27 04:20 | NUR ---
SHIFT SUMMARY PATIENT HAD NO ACUTE CHANGES. ALERT AND ORIENTED AND SBA TO BSC. NO EXPRESSIVE ASPHAGIA OBSERVED. EQUAL STRENGTH IN ALL EXTREMITIES. PIV INTACT. NS INFUSED @ 100 mL/HR X ONE BAG COMPLETE. TELE MONITOR NSR 77. DENIES CHEST PAIN, SOB, AND N/V. REPORTED SORE THROAT/COUGH AND HOSPITALIST [employer] PHYSICIAN PRACTICE MANAGER ORDERED CEPACOL LOZENGERS Q4 PRN. SLEPT MOST OF THE SHIFT. CALL LIGHT IN REACH. BED IN LOWEST POSITION. WILL CONTINUE TO MONITOR UNTIL DAY SHIFT NURSE ASSUMES CARE.
[2024-03-27] MEDS ORDERED: Pantoprazole Sodium 40 MG Tab PO SCH (06:00)
[2024-03-27 06:16] LABS: BASOPHILS PERCENT AUTO 1 % (0-2); EOSINOPHILS PERCENT AUTO 2 % (0-6); Hematocrit 33.2 % (33.0-51.0); Hemoglobin 10.9 g/dL (11.5-16.0); IMMATURE GRAN ABSOLUTE AUTO 0.03 K/mm3 (0.00-0.10); IMMATURE GRAN PERCENT AUTO 0 % (0-1); LYMPHOCYTES PERCENT AUTO 23 % (21-46); MONOCYTES ABSOLUTE AUTO 0.68 K/mm3 (0.16-1.47); MONOCYTES PERCENT AUTO 8 % (4-13); Mean Corpuscular HGB 28.8 pg (26.0-34.0); Mean Corpuscular HGB Conc 32.8 g/dL (31.5-36.5); Mean Corpuscular Volume 88 fL (80-100); Mean Platelet Volume 9.7 fL (9.1-12.4); NEUTROPHILS ABSOLUTE AUTO 5.36 K/mm3 (1.96-9.15); NEUTROPHILS PERCENT AUTO 65 % (41-73); Platelet Count 365 K/mm3 (150-400); RDW Standard Deviation 44.8 fL (35.1-46.3); Red Blood Cell Count 3.78 M/mm3 (3.80-5.20); White Blood Cell Count 8.27 K/mm3 (4.00-11.30)
[2024-03-27 07:10] LABS: Albumin, Blood 2.9 g/dL (3.4-5.0); Albumin/Globulin Ratio 1.1 (0.8-1.8); Bilirubin, Total 0.3 mg/dL (0.1-1.0); Calcium, Blood 8.4 mg/dL (8.5-10.1); Creatinine, Blood 0.69 mg/dL (0.40-1.00); Globulin, Blood 2.7 g/dL (2.2-4.0); Potassium, Blood 3.7 mmol/L (3.5-5.5); Total Protein, Blood 5.6 g/dL (6.4-8.2)
[2024-03-27 07:18] VITALS: BP 147/69
[2024-03-27] MEDS ORDERED: Losartan Potassium 50 MG Tab PO SCH (09:00)
[2024-03-27] MEDS ORDERED: AmLODIPine Besylate 5 MG Tab PO SCH (09:00)
[2024-03-27] MEDS ORDERED: PANT40 PO ×2 (12:06)
[2024-03-27] MEDS ORDERED: CLOP75 PO ×2 (12:09)
--- NOTE | 2024-03-27 14:26 | NUR ---
DISCHARGE NOTE PT DISCHARGED TO HOME, PICKED UP BY HER FRIEND. IV REMOVED, TELE RETURNED. DISCHARGE EDUCATION AND INFORMATION PROVIDED. MEDICATIONS FAXED TO THE PHARMACY OF HER CHOICE.
== END 2024-03-27 14:30 | disposition home or self-care (01) ==
LOC: ER 19:41 → ERHOLD 19:42 → MEDS 19:42 → ERHOLD 19:42 → MEDS 03-26 14:02
PROVIDERS: Family Medicine; Student in an Organized Health Care Education/Training Program; ADMIT Internal Medicine
DX: I63.9 Cerebral infarction, unspecified (principal); R47.01 Aphasia; D64.9 Anemia, unspecified; M62.82 Rhabdomyolysis; R79.89 Other specified abnormal findings of blood chemistry; I65.23 Occlusion and stenosis of bilateral carotid arteries; I72.0 Aneurysm of carotid artery; I10 Essential (primary) hypertension; I21.A1 Myocardial infarction type 2; E78.5 Hyperlipidemia, unspecified; K21.9 Gastro-esophageal reflux disease without esophagitis; M81.0 Age-related osteoporosis without current pathological fracture; Z79.02 Long term (current) use of antithrombotics/antiplatelets; Z79.82 Long term (current) use of aspirin; Z79.891 Long term (current) use of opiate analgesic; Z79.899 Other long term (current) drug therapy; Z87.891 Personal history of nicotine dependence; Z88.0 Allergy status to penicillin; Z88.8 Allergy status to other drugs, medicaments and biological substances; Z86.73 Personal history of transient ischemic attack (TIA), and cerebral infarction without residual deficits
CPT/HCPCS: 36415; 70450; 70496; 70498; 71045; 72125; 72170; 80053; 81003; 82550; 83880; 84484; 85025; 93005; 93010; 96361; 96372; 96372-59; 96374; 97110; 97116; 97161; 99285-25; A9270; G0378; J1650; J2405; J7030; Q9967

== ENCOUNTER 2024-05-18 20:13 | Emergency (ER) | payer MEDICARE, BC ==
[~2024-05-18] VITALS: Ht 160 cm; Wt 54.4 kg
[~2024-05-18 20:13] MED LIST changes: +CALCIUM 600-D31 EAC2 PO; +CLOP75 PO; +PANT40 PO
[2024-05-18] MEDS ORDERED: NS 1,000 ML IV SCH (22:00)
[2024-05-18 22:26] LABS: BASOPHILS ABSOLUTE AUTO 0.09 K/mm3 (0.00-0.23); BASOPHILS PERCENT AUTO 1 % (0-2); EOSINOPHILS ABSOLUTE AUTO 0.26 K/mm3 (0.00-0.68); EOSINOPHILS PERCENT AUTO 3 % (0-6); Hematocrit 38.9 % (33.0-51.0); Hemoglobin 12.7 g/dL (11.5-16.0); IMMATURE GRAN ABSOLUTE AUTO 0.01 K/mm3 (0.00-0.10); IMMATURE GRAN PERCENT AUTO 0 % (0-1); LYMPHOCYTES ABSOLUTE AUTO 2.47 K/mm3 (0.84-5.20); LYMPHOCYTES PERCENT AUTO 27 % (21-46); MONOCYTES ABSOLUTE AUTO 0.83 K/mm3 (0.16-1.47); MONOCYTES PERCENT AUTO 9 % (4-13); Mean Corpuscular HGB 28.5 pg (26.0-34.0); Mean Corpuscular HGB Conc 32.6 g/dL (31.5-36.5); Mean Corpuscular Volume 87 fL (80-100); NEUTROPHILS ABSOLUTE AUTO 5.58 K/mm3 (1.96-9.15); NEUTROPHILS PERCENT AUTO 60 % (41-73); Platelet Count 358 K/mm3 (150-400); RDW Coefficient Variation 12.7 % (11.7-14.2); RDW Standard Deviation 40.9 fL (35.1-46.3); Red Blood Cell Count 4.45 M/mm3 (3.80-5.20); White Blood Cell Count 9.24 K/mm3 (4.00-11.30)
[2024-05-18 22:46] LABS: Albumin, Blood 3.7 g/dL (3.4-5.0); Albumin/Globulin Ratio 1.3 (0.8-1.8); Bilirubin, Total 0.3 mg/dL (0.1-1.0); Bun/Creatinine Ratio 10.3 (12.0-20.0); Calcium, Blood 9.3 mg/dL (8.5-10.1); Creatinine, Blood 0.97 mg/dL (0.40-1.00); Globulin, Blood 2.9 g/dL (2.2-4.0); Potassium, Blood 3.8 mmol/L (3.5-5.5); Total Protein, Blood 6.6 g/dL (6.4-8.2)
[2024-05-18] MEDS ORDERED: Ondansetron HCl 2 MG / ML 2ML Vial IV ONE (23:00)
[2024-05-19 01:02] LABS: Source, Urine Clean Catch
[2024-05-19] MEDS ORDERED: ONDA4ODT MM (01:06)
[2024-05-19] MEDS ORDERED: MIRALAX17 GM PO (01:07)
[2024-05-19] MEDS ORDERED: RX Prepack 2 Tabs Ondansetron ODT 4MG UD ONE (01:20)
[2024-05-19 01:22] LABS: Bilirubin, Urine Neg (Neg); Blood, Urine Neg (Neg); Glucose Qualitative, Urine Neg (Neg); Ketones, Urine Neg (Neg); Leukocyte Esterase, Urine Neg (Neg); Nitrite, Urine Neg (Neg); Protein, Urine Neg (Neg); Urobilinogen, Urine NORM (Normal)
[2024-05-19 01:28] LABS: Appearance, Urine Clear (Clear); Color, Urine Yellow (P-Yellow)
[2024-05-19 08:22] VITALS: BP 124/84
== END 2024-05-19 08:23 | disposition home or self-care (01) ==
LOC: ER 20:13
PROVIDERS: Student in an Organized Health Care Education/Training Program
DX: K59.00 Constipation, unspecified (principal); I10 Essential (primary) hypertension; E78.5 Hyperlipidemia, unspecified; K21.9 Gastro-esophageal reflux disease without esophagitis; Z87.891 Personal history of nicotine dependence; Z88.0 Allergy status to penicillin; Z86.73 Personal history of transient ischemic attack (TIA), and cerebral infarction without residual deficits; Z79.02 Long term (current) use of antithrombotics/antiplatelets; Z79.899 Other long term (current) drug therapy
CPT/HCPCS: 74177; 80053; 81003; 83690; 84484; 85025; 93005; 93010; 96374-59; 99284-25; A9270; J2405; J7030; Q9967